=== PATIENT | female | born 1970 | race Caucasian/White ===

== ENCOUNTER 2021-01-16 17:53 | Emergency (ER) | payer SELFPAY ==
[2021-01-16] MEDS ORDERED: hydrALAZINE 20 MG/ML SDV ONE (18:04)
[2021-01-16] MEDS ORDERED: hydrALAZINE 20 MG/ML SDV IVPUSH ONE (18:04)
--- NOTE | 2021-01-16 18:10 | EDM.PDOC ---
<Han Soto - Last Filed: 01/25/21 17:15> ED HPI GENERAL MEDICAL PROBLEM - General Chief Complaint: Neurological Problem Stated Complaint: EMS Time Seen by Provider: 01/16/21 17:53 - Related Data Allergies Allergy/AdvReac Type Severity Reaction Status Date / Time Unable to Assess Allergy Unverified 01/16/21 18:08 Home Meds: Home Meds . [Unable to Verify Home Med List] 01/16/21 [History] Course - Re-Assessments/Exams Free Text/Narrative Re-Assessment/Exam: 01/17/21 01:00. Have provided further care after change of shift from Dr Anderson. I agree with his hx and exam as documented. She was expected to unfortunately sooner than later so not admitted to floor. I was asked to p rovide a dose of morphine due to some posturing, possible discomfort about an hour ago. Did order a dose of morphine and also 2 mg ativan IV. She did widen her QRS about an hour ago, had a few runs of tachycardia. She than went into asystole followed by V fib at about 0052. When I went to exam at 0054 she was in fine v Fib going to asystole. No heart tones, no spontaneous respirations. Time of 0054. Dr Anderson intends to do certificate. Departure - Departure Time of Disposition: 00:55 Disposition: 20 Clinical Impression: Intracerebral hemorrhage Qualifiers: Intracerebral hemorrhage etiology: nontraumatic Cerebral hemorrhage location: brainstem Laterality: unspecified laterality Qualified Code(s): I61.3 - Nontraumatic intracerebral hemorrhage in brain stem - Discharge Information Referrals: PCP,None [Primary Care Provider] - Forms: ED Department Discharge <Naga Anderson - Last Filed: 01/26/21 08:30> ED HPI GENERAL MEDICAL PROBLEM - General Source of Information: Reports: EMS History Limitations: Reports: No Limitations - History of Present Illness INITIAL COMMENTS - FREE TEXT/NARRATIVE: 50-year-old female presents to the ED per [place] [facility] after they responded to a call out in [facility] at the [employer]. This lady was apparently seated in a vehicle when she suddenly became unresponsive. Apparently she had been in the restaurant part of the [employer] having coffee. It is unclear exactly what transpired it is hypothesized she may have had a seizure. She apparently was complaining to a friend that she was not feeling well and we believe this was due to a headache. When the paramedics arrived they found her to be posturing stertorous shallow breathing and completely unresponsive. She required oxygen resuscitation via mask at 10 L/min. An IV was started left antecubital fossa and due to seizure-like activity repeatedly she received Ativan 2 mg IV in 3 different aliquots for a total of 6 mg before arrival in the ED. History provided by her friend suggests that she has had a stroke with left-sided hemiparesis 2 years ago. She made a complete recovery from this. No other history is available at this time. Upon arrival in the ED patient is unresponsive with stertorous shallow breathing and not able to maintain or protect her airway. [place] Coma Scale was 3out of 15 with posturing .ie. hyperflexion of upper and lower extremities. She was thus intubated using RIS kit. Given Versed 4 mg followed by 30 mg of etomidate followed by 150 mg of succinylcholine to allow intubation of a 7-1/2 ET tube 23 cm at the corner of the right lip. CT scan will be done as soon as possible. Onset: Today, Sudden Onset Date: 01/16/21 Onset Time: 04:50 Duration: Minutes: (Seen in the ED approximately 1 hour from onset of events in a vehicle at a gas station in [facility]) Location: Reports: Other (Acute neurological event occurred shortly after consuming a cup of coffee at the [employer] store in [facility]) Quality: Reports: Other (Patient was unresponsive upon director market research arrival from [place] to [place]) Severity: Severe Improves with: Reports: None Worsens with: Reports: None Context: Reports: Other (Spontaneous occurrence of neurological signs and symptoms with neurological unresponsiveness and seizure-like activity of the left upper extremity). 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) Social & Family History - Living Situation & Occupation Living situation: Reports: Occupation: Unemployed ED ROS GENERAL - Review of Systems Review Of Systems: Unable To Obtain Reason Not Obtained: Patient presents to the ED unresponsive and barely breathing ED EXAM, NEURO - Physical Exam Exam: See Below Exam Limited By: Altered Mental Status (Unresponsive) General Appearance: Moderate Distress, Other (Unresponsive with decerebrate posturing both upper extremities and lower extremities) Eye Exam: Bilateral Eye: Normal Inspection (No gaze palsy), PERRL (Pupils were sluggish and reactive to light 5 mm in size. No spontaneous eye movement) Throat/Mouth: Normal Teeth, Other (She does have an injury to the tip of her anterior tongue suggesting seizure bite) Head Exam: Atraumatic, Normocephalic, Other (No outward signs of any head or facial trauma) Neck: Normal Inspection, Supple, Non-Tender, Full Range of Motion. No: Lymphadenopathy (L), Lymphadenopathy (R) Respiratory/Chest: Decreased Breath Sounds, Other (Stertorous shallow breathing 8/min. Not able to maintain secretions or protect her airway) Cardiovascular: Regular Rate, Rhythm, No Edema, No Gallop, No JVD, No Rub. No: Normal Peripheral Pulses GI/Abdominal: Soft, Non-Tender, No Organomegaly, No Distention Neurological: Flexor Response to Pain, Other (Decerebrate posturing bilaterally and both arms and feet). No: Alert, Normal Mood/Affect, Normal Dorsiflexion, CN II-XII Intact, Normal Plantar Flexion, Normal Gait, Normal Reflexes Extremities: Normal Inspection, Normal Range of Motion, Non-Tender, No Pedal Edema Psychiatric: Other (Unresponsive nonverbal) Skin Exam: Normal Color, Cool ED NEURO PROCEDURES - Endotracheal Intubation ET Intubation Indication: Respiratory Failure, Airway Protection Preparation: Suction, Balloon Tested, BVM Set Up, Difficult Airway Equip Pre-Oxygenation: Assisted with BVM, 100% FiO2 Anesthesia Meds: Etomidate (30 mg), Midazolam (4 mg), Succinylcholine (150 mg) Placement: Orotracheal, Cuffed, Uncomplicated Placement Cords Visualized: Yes, Grade 1 ETT Size In mm: 7.5 Number of Attempts: 2 Confirmed By: CO2 Indicator, Bilateral Breath Sounds, Chest Xray (Chest x-ray revealed that the ET tube and migrated further down the trachea and into the right mainstem bronchus. This occurred when we lifted up her head to place the ET tube stabilization device. ET tube was withdrawn 3 cm to 20 cm at the corner of her right lip) Tube Secured By: By RT #1 Interpretation EKG Date: 01/16/21 Time: 18:28 Rhythm: NSR (Ectopic P waves appreciated in V1 and V2) Rate (Beats/Min): 69 [place]: LAD-Left [place] Deviation (-28 degrees) P-Wave: Enlarged (P waves in leads V1, V2, V3, III and aVF are inverted. The remainder are no normal.) QRS: Other (Tall R wave in lead I is suggestive left ventricular appear to be pattern) ST-T: Other (T wave inversion aVL) QT: Prolonged (Mildly prolonged) EKG Interpretation Comments: Abnormal ECG Course - Vital Signs Last Recorded V/S: Last Vital Signs Temp 36.4 C 01/16/21 17:58 Pulse 100 01/16/21 17:58 Resp 6 L 01/16/21 17:58 BP 189/130 H 01/16/21 17:58 Pulse Ox 90 L 01/16/21 17:58 - Orders/Labs/Meds Labs: Laboratory Tests 01/16/21 01/16/21 01/16/21 Range/Units 17:58 17:58 17:58 WBC 7.38 (3.98-10.04) K/mm3 RBC 5.23 H (3.98-5.22) M/mm3 Hgb 14.9 (11.2-15.7) gm/dl Hct 44.0 (34.1-44.9) % MCV 84.1 (79.4-94.8) fl MCH 28.5 (25.6-32.2) pg MCHC 33.9 (32.2-35.5) g/dl RDW Std Deviation 40.6 (36.4-46.3) fL Plt Count 251 (182-369) K/mm3 MPV 10.3 (9.4-12.3) fl Neut % (Auto) 65.8 (34.0-71.1) % Lymph % (Auto) 23.8 (19.3-51.7) % Smith % (Auto) 7.6 (4.7-12.5) % Eos % (Auto) 2.2 (0.7-5.8) Baso % (Auto) 0.3 (0.1-1.2) % Neut # (Auto) 4.86 (1.56-6.13) K/mm3 Lymph # (Auto) 1.76 (1.18-3.74) K/mm3 Smith # (Auto) 0.56 H (0.24-0.36) K/mm3 Eos # (Auto) 0.16 (0.04-0.36) K/mm3 Baso # (Auto) 0.02 (0.01-0.08) K/mm3 Puncture Site ABG pH (7.35-7.45) ABG pCO2 (35.0-45.0) mmHg ABG pO2 (80.0-100.0) mmHg ABG HCO3 (22.0-26.0) meq/L ABG O2 Saturation (96.0-97.0) % ABG Base Excess (-2-2.0) Bahishek Test A-a Gradient mmHg O2 Delivery Device FiO2 (21.00-100.00) % Tidal Volume cc PEEP cmH20 Sodium 139 (136-145) mEq/L Potassium 3.5 (3.5-5.1) mEq/L Chloride 103 (98-107) mEq/L Carbon Dioxide 19 L (21-32) mEq/L Anion Gap 20.5 H (5-15) BUN 14 (7-18) mg/dL Creatinine 0.8 (0.55-1.02) mg/dL Est Cr Clr Drug Dosing TNP Estimated GFR (MDRD) > 60 (>60) mL/min BUN/Creatinine Ratio 17.5 (14-18) Glucose 167 H (70-99) mg/dL Lactic Acid 4.5 H* (0.4-2.0) mmol/L Calcium 8.7 (8.5-10.1) mg/dL Magnesium 1.8 (1.8-2.4) mg/dL Total Bilirubin 1.5 H (0.2-1.0) mg/dL AST 27 (15-37) U/L ALT 29 (14-59) U/L Alkaline Phosphatase 64 (46-116) U/L Troponin I < 0.017 (0.00-0.056) ng/mL C-Reactive Protein <0.2 (<1.0) mg/dL NT-Pro-B Natriuret Pep (0-125) pg/mL Total Protein 7.6 (6.4-8.2) g/dl Albumin 4.2 (3.4-5.0) g/dl Globulin 3.4 gm/dL Albumin/Globulin Ratio 1.2 (1-2) Urine Opiates Screen (GFQQWQ=979) Ur Buprenorphine Scrn (CUTOFF=10) Ur Oxycodone Screen (DMF7SI=233) Urine Methadone Screen (BXPQUL=851) Ur Propoxyphene Screen (UXZLZA=344) Ur Barbiturates Screen (MCFSQN=243) Ur Tricyclics Screen (OWAEHA=932) Ur Phencyclidine Scrn (CUTOFF=25) Ur Amphetamine Screen (ULVHOQ=532) U Methamphetamines Scrn (ILYISM=415) U Benzodiazepines Scrn (LXMUCG=206) U Cocaine Metab Screen (MBVJTI=607) U Marijuana (THC) Screen (CUTOFF=50) SARS-CoV-2 RNA (LAURA) (NEGATIVE) 01/16/21 01/16/21 01/16/21 Range/Units 17:58 18:02 18:10 WBC (3.98-10.04) K/mm3 RBC (3.98-5.22) M/mm3 Hgb (11.2-15.7) gm/dl Hct (34.1-44.9) % MCV (79.4-94.8) fl MCH (25.6-32.2) pg MCHC (32.2-35.5) g/dl RDW Std Deviation (36.4-46.3) fL Plt Count (182-369) K/mm3 MPV (9.4-12.3) fl Neut % (Auto) (34.0-71.1) % Lymph % (Auto) (19.3-51.7) % Smith % (Auto) (4.7-12.5) % Eos % (Auto) (0.7-5.8) Baso % (Auto) (0.1-1.2) % Neut # (Auto) (1.56-6.13) K/mm3 Lymph # (Auto) (1.18-3.74) K/mm3 Smith # (Auto) (0.24-0.36) K/mm3 Eos # (Auto) (0.04-0.36) K/mm3 Baso # (Auto) (0.01-0.08) K/mm3 Puncture Site Rt radial ABG pH 7.33 L (7.35-7.45) ABG pCO2 48.5 H (35.0-45.0) mmHg ABG pO2 90.0 (80.0-100.0) mmHg ABG HCO3 24.8 (22.0-26.0) meq/L ABG O2 Saturation 96.2 (96.0-97.0) % ABG Base Excess -1.1 (-2-2.0) Abhishek Test Positive A-a Gradient 135 mmHg O2 Delivery Device Ventilator FiO2 40.00 (21.00-100.00) % Tidal Volume 450.0 cc PEEP 5.0 cmH20 Sodium (136-145) mEq/L Potassium (3.5-5.1) mEq/L Chloride (98-107) mEq/L Carbon Dioxide (21-32) mEq/L Anion Gap (5-15) BUN (7-18) mg/dL Creatinine (0.55-1.02) mg/dL Est Cr Clr Drug Dosing Estimated GFR (MDRD) (>60) mL/min BUN/Creatinine Ratio (14-18) Glucose (70-99) mg/dL Lactic Acid (0.4-2.0) mmol/L Calcium (8.5-10.1) mg/dL Magnesium (1.8-2.4) mg/dL Total Bilirubin (0.2-1.0) mg/dL AST (15-37) U/L ALT (14-59) U/L Alkaline Phosphatase (46-116) U/L Troponin I (0.00-0.056) ng/mL C-Reactive Protein (<1.0) mg/dL NT-Pro-B Natriuret Pep 450 H (0-125) pg/mL Total Protein (6.4-8.2) g/dl Albumin (3.4-5.0) g/dl Globulin gm/dL Albumin/Globulin Ratio (1-2) Urine Opiates Screen (CPHLRV=953) Ur Buprenorphine Scrn (CUTOFF=10) Ur Oxycodone Screen (HUV4IN=958) Urine Methadone Screen (FDLBDH=260) Ur Propoxyphene Screen (SYRGWG=962) Ur Barbiturates Screen (NXHBLU=582) Ur Tricyclics Screen (MUFYMU=444) Ur Phencyclidine Scrn (CUTOFF=25) Ur Amphetamine Screen (RBKCDQ=058) U Methamphetamines Scrn (XATLST=606) U Benzodiazepines Scrn (GKMPFT=278) U Cocaine Metab Screen (BAHBVC=750) U Marijuana (THC) Screen (CUTOFF=50) SARS-CoV-2 RNA (LAURA) Negative (NEGATIVE) 01/16/21 Range/Units 18:13 WBC (3.98-10.04) K/mm3 RBC (3.98-5.22) M/mm3 Hgb (11.2-15.7) gm/dl Hct (34.1-44.9) % MCV (79.4-94.8) fl MCH (25.6-32.2) pg MCHC (32.2-35.5) g/dl RDW Std Deviation (36.4-46.3) fL Plt Count (182-369) K/mm3 MPV (9.4-12.3) fl Neut % (Auto) (34.0-71.1) % Lymph % (Auto) (19.3-51.7) % Smith % (Auto) (4.7-12.5) % Eos % (Auto) (0.7-5.8) Baso % (Auto) (0.1-1.2) % Neut # (Auto) (1.56-6.13) K/mm3 Lymph # (Auto) (1.18-3.74) K/mm3 Smith # (Auto) (0.24-0.36) K/mm3 Eos # (Auto) (0.04-0.36) K/mm3 Baso # (Auto) (0.01-0.08) K/mm3 Puncture Site ABG pH (7.35-7.45) ABG pCO2 (35.0-45.0) mmHg ABG pO2 (80.0-100.0) mmHg ABG HCO3 (22.0-26.0) meq/L ABG O2 Saturation (96.0-97.0) % ABG Base Excess (-2-2.0) Abhishek Test A-a Gradient mmHg O2 Delivery Device FiO2 (21.00-100.00) % Tidal Volume cc PEEP cmH20 Sodium (136-145) mEq/L Potassium (3.5-5.1) mEq/L Chloride (98-107) mEq/L Carbon Dioxide (21-32) mEq/L Anion Gap (5-15) BUN (7-18) mg/dL Creatinine (0.55-1.02) mg/dL Est Cr Clr Drug Dosing Estimated GFR (MDRD) (>60) mL/min BUN/Creatinine Ratio (14-18) Glucose (70-99) mg/dL Lactic Acid (0.4-2.0) mmol/L Calcium (8.5-10.1) mg/dL Magnesium (1.8-2.4) mg/dL Total Bilirubin (0.2-1.0) mg/dL AST (15-37) U/L ALT (14-59) U/L Alkaline Phosphatase (46-116) U/L Troponin I (0.00-0.056) ng/mL C-Reactive Protein (<1.0) mg/dL NT-Pro-B Natriuret Pep (0-125) pg/mL Total Protein (6.4-8.2) g/dl Albumin (3.4-5.0) g/dl Globulin gm/dL Albumin/Globulin Ratio (1-2) Urine Opiates Screen Negative (OPVKIJ=140) Ur Buprenorphine Scrn Negative (CUTOFF=10) Ur Oxycodone Screen Negative (RGU8DV=716) Urine Methadone Screen Negative (ZDNUQP=641) Ur Propoxyphene Screen Negative (PJEDUR=522) Ur Barbiturates Screen Negative (DWOHBR=395) Ur Tricyclics Screen Negative (MGOVJL=091) Ur Phencyclidine Scrn Negative (CUTOFF=25) Ur Amphetamine Screen Negative (MNUZCD=142) U Methamphetamines Scrn Negative (FAXLHE=568) U Benzodiazepines Scrn Negative (DGKYCN=816) U Cocaine Metab Screen Negative (XDJCOJ=169) U Marijuana (THC) Screen Negative (CUTOFF=50) SARS-CoV-2 RNA (LAURA) (NEGATIVE) Meds: Medications Discontinued Medications Generic Name Dose Route Start Last Admin Trade Name Freq PRN Reason Stop Dose Admin Albuterol 2.5 mg 01/16/21 18:11 01/16/21 18:59 Albuterol 0.083% 2.5 Mg/3 Ml Neb Soln NEB 01/16/21 18:12 Not Given ONETIME ONE Etomidate 40 mg 01/16/21 19:00 Etomidate 2 Mg/Ml 20 Ml Sdv IVPUSH 01/16/21 19:01 .STK-MED ONE Hydralazine HCl Confirm 01/16/21 18:04 01/16/21 18:59 Hydralazine 20 Mg/Ml Sdv Administered 01/16/21 18:05 Not Given Dose 20 mg .ROUTE .STK-MED ONE Hydralazine HCl 10 mg 01/16/21 18:04 01/16/21 18:06 Hydralazine 20 Mg/Ml Sdv IVPUSH 01/16/21 18:05 10 mg ONETIME ONE Administration Sodium Chloride 1,000 mls @ 100 mls/hr 01/16/21 18:15 Normal Saline IV ASDIRECTED SHEILA Nicardipine HCl 25 mg/ Sodium 260 mls @ 52 mls/hr 01/16/21 18:15 01/16/21 18:30 Chloride IV 7 mg/hr ASDIRECTED SHEILA 72.8 mls/hr Administration 5 MG/HR Propofol Confirm 01/16/21 18:20 01/16/21 18:59 Diprivan 100 Ml Administered 01/16/21 18:21 Not Given Dose 100 mls @ as directed .ROUTE .STK-MED ONE Sodium Chloride Confirm 01/16/21 18:25 01/16/21 18:59 Normal Saline Administered 01/16/21 18:26 Not Given Dose 250 mls @ as directed .ROUTE .STK-MED ONE Propofol 100 mls @ 2.722 mls/hr 01/16/21 19:00 01/16/21 18:30 Diprivan 100 Ml IV 10 mcg/kg/min TITRATE SHEILA 5.443 mls/hr Administration Protocol 5 MCG/KG/MIN Lorazepam 2 mg 01/17/21 00:25 01/17/21 00:45 Lorazepam 2 Mg/Ml Sdv IVPUSH 01/17/21 00:26 2 mg ONETIME ONE Administration Midazolam HCl 25 mg 01/16/21 19:00 Midazolam 5 Mg/Ml 5 Ml Mdv .ROUTE 01/16/21 19:01 .STK-MED ONE Morphine Sulfate 2 mg 01/17/21 00:06 01/17/21 00:12 Morphine 2 Mg/Ml Syringe IVPUSH 01/17/21 00:07 2 mg ONETIME ONE Administration Nicardipine HCl Confirm 01/16/21 18:25 01/16/21 18:59 Nicardipine Hcl 25 Mg/10 Ml Administered 01/16/21 18:26 Not Given Dose 25 mg .ROUTE .STK-MED ONE Ondansetron HCl 4 mg 01/17/21 00:06 01/17/21 00:12 Ondansetron 4 Mg/2 Ml Sdv IVPUSH 01/17/21 00:07 4 mg ONETIME ONE Administration Succinylcholine Chloride 200 mg 01/16/21 19:00 Succinylcholine 200 Mg/10 Ml Mdv .ROUTE 01/16/21 19:01 .STK-MED ONE Vecuronium [place] 10 mg 01/16/21 19:00 Vecuronium 10 Mg Vial .ROUTE 01/16/21 19:01 .STK-MED ONE - Radiology Interpretation Free Text/Narrative:: CT of the head has been completed without contrast. It reveals a large left-s ided intracranial hemorrhage into the left basal ganglia. This hemorrhage measures approximate 3.6 cm x 3.3 cm with craniocaudal dimension measuring 3.4 cm. There is extension of blood or hemorrhage into the lateral ventricle on the left side filling it completely and approximately three quarters of the right lateral ventricle as well. But also extends into the third ventricle and into the fourth ventricle. Hemorrhage causes mid line shift of approximately 3.5 mm. Diminished density is noted within the periventricular white matter most likely representing mild small vessel ischemic demyelination changes. No acute calvarial abnormalities are appreciated. Visualized mastoid sinuses and paranasal sinuses show nothing acute and three quarters of the right lateral ventricle with blood. This is a fatal/nonoperative injury. We are currently looking for family members. - Re-Assessments/Exams Free Text/Narrative Re-Assessment/Exam: 01/16/21 19:20: Her arrived at this time as well as a close friend that she was actually having coffee with. He is actually an interventional radiologist. He indicated that he was having coffee as [place] had been looking after his dogs and they met in [place] at the [employer]. He states they were walking back out to her car when she suddenly dropped her cup which was in her right hand. She then reached up to both sides of her facial cheeks but could not speak. He aided her back to her vehicle with a great deal of difficulty and was able to get her back into the passenger side of the vehicle to avoid the cold. Shortly after this he appreciated seizure-like activity in her left upper extremity and then sudden unresponsiveness. Paramedics were summoned but came from [place] is [place] They found her unresponsive but breathing on her own with high blood pressure. They felt that she was exhibiting seizure activity in her left upper extremity and gave her Ativan 2 mg x 3 different aliquots in route to [place]. Upon arrival in the emergency room she was unresponsive with stertorous breathing. Paramedics indicated that she had vomited once and aspiration was a possibility. They had suctioned her airway. She was on a nonrebreather mask at 12 L/min. It was quite apparent that she was not able to protect her airway or maintain her airway and therefore intubation was deemed necessary.. [place] Coma Scale was initially 3 out of 15. She was intubated with rapid sequence intubation using etomidate 30 mg Versed 4 mg and succinylcholine 150 mg and intubated with a 7.5 ET tube to 23 cm at the corner of her right lip. I appreciated good air entry to both upper lung guzman after this. Chest x-ray was done portably shortly after this revealed that the ET tube and migrated down the trachea and when I inspected the ET tube on chest x- ray it had migrated down the right main bronchus. I therefore retracted the ET tube by 3 cm and achieved good air entry to both lung guzman on auscultation. Once her was made aware of the dire problem and that this is a fatal injury we gave him time to spend with his and interventional radiologist friend that accompanied her to [facility]. 01/16/21 20:04 Patient has been extubated at the family's request understanding that this is a fatal illness. It is anticipated that she will suffer gradually increased intracranial hypertension and eventual coning of her brain. 01/16/21 20:42 heart rate is 75 and sinus with frequent PVCs at this time. Blood pressure is 197/90.Care will be transferred to Dr Han Soto as it is change of shift. Patient will remain in the ED vs being admitted to the hospital as is felt to be imminent due to severe intracranial hemorrhage. 01/17/21: Time of is 0054 hrs. Critical Care Note - Critical Care Note Total Time (mins): 40 (This patient presented to the ED in critical condition. Initial Bella coma scalwe was 3. She was revelaing decerbrabrate posturing. Time spent stabilizing her airway with intubation and placement on ventilator,. Labs and ABG draw and CT of head and interpretation. times spent with family-- to discuss fatal intracranial bleeding and nothing medically that could be done for her. Decison made after he spoke with other family members to extubate her aproximately 1 hr from time of presentation and allow mother nature to take its course.)
[2021-01-16] MEDS ORDERED: Albuterol 0.083% 2.5 MG/3 ML Neb Soln NEB ONE (18:11)
[2021-01-16] MEDS ORDERED: Sodium Chloride 0.9% 1,000 ML IV SCH (18:15)
[2021-01-16] MEDS ORDERED: niCARdipine HCl 25 MG in Sodium Chloride 0.9% 250 ML IV SCH (18:15)
[2021-01-16] MEDS ORDERED: propofoL 100 ML ONE (18:20)
[2021-01-16] MEDS ORDERED: Sodium Chloride 0.9% 250 ML ONE (18:25)
--- NOTE | 2021-01-16 18:43 | CT ---
Head CT Technique: Multiple axial sections through the brain were obtained. Intravenous contrast was not utilized. Reconstructed coronal and sagittal images were obtained. Comparison: No prior intracranial imagingis available. Findings: Parenchymal hemorrhage is seen within the left basal ganglia. This hemorrhage measures approximately 3.6 cm x 3.3 cm with craniocaudal dimension measuring 3.4 cm. There is extension of this hemorrhage into the lateral ventricle with blood being seen within both lateral ventricles. Blood also extends into the third ventricle and into the fourth ventricle. Hemorrhage causes mild midline shift of approximately 3.5 mm. Diminished density is noted within the periventricular white matter most likely representing mild small vessel ischemic demyelination change. Bone window settings were reviewed. No acute calvarial abnormality is seen. Visualized mastoid sinuses and paranasal sinuses show nothing acute. Impression: 1. Left basal ganglia hemorrhage measuring 3.6 x 3.3 x 3.4 cm. 2. Basal ganglia hemorrhage penetrates the lateral ventricle with blood being seen within the lateral ventricles, third ventricle and fourth ventricle. 3. Mild midline shift is seen. 4. Mild areas of diminished density noted within the periventricular white matter most likely representing mild small vessel ischemic demyelination change. Diagnostic code #5 Preliminary report was discussed with Dr. Anderson by phone on 01/16/21, 6:42 PM.
--- NOTE | 2021-01-16 18:45 | CR ---
Chest: Frontal view of the chest was obtained utilizing portable technique in supine position. Comparison: No prior chest imaging is available. Heart size may be slightly enlarged. Upper mediastinum is slightly widened but felt to be accentuated from portable technique. Lungs show no definite acute parenchymal change. Surgical clips are seen from prior cholecystectomy. Endotracheal tube is seen with tip lying at the origin of the right mainstem bronchus and should be withdrawn by about 2.6 cm. Bony structures show nothing acute. Impression: 1. Tip of endotracheal tube at the right mainstem bronchus and should be withdrawn by about 2.6 cm. 2. Other findings as noted above which are felt to be incidental. Diagnostic code #3
[2021-01-16] MEDS ORDERED: Succinylcholine 200 MG/10 ML MDV ONE (19:00)
[2021-01-16] MEDS ORDERED: Etomidate 2 MG/ML 20 ML SDV IVPUSH ONE (19:00)
[2021-01-16] MEDS ORDERED: propofoL 100 ML IV SCH (19:00)
[2021-01-16] MEDS ORDERED: Midazolam 5 MG/ML 5 ML MDV ONE (19:00)
[2021-01-17] MEDS ORDERED: Ondansetron 4 MG/2 ML SDV IVPUSH ONE (00:06)
[2021-01-17] MEDS ORDERED: Morphine 2 MG/ML SYRINGE IVPUSH ONE (00:06)
[2021-01-17] MEDS ORDERED: LORazepam 2 MG/ML SDV IVPUSH ONE (00:25)
== END 2021-01-17 00:54 | disposition expired ==
LOC: JD.ED 17:53
DX: I61.3 Nontraumatic intracerebral hemorrhage in brain stem (principal); R94.31 Abnormal electrocardiogram [ECG] [EKG]; Z20.822 Contact with and (suspected) exposure to COVID-19
CPT/HCPCS: 31500; 36415; 36600; 51702; 70450; 70450-26; 71045; 71045-26; 80053; 80306; 82803; 83605; 83735; 83880; 84484; 85025; 86140; 93005; 96365; 96375; 99285-25; J0330; J0360; J2060; J2250; J2270; J2405; J2704; J3490; J7050; U0002